=== PATIENT | female | born 1990 | race Caucasian/White ===

== ENCOUNTER 2020-09-30 22:57 | Emergency (ER) | payer OTHER ==
[2020-09-30 23:52] LABS: HEMOGLOBIN 14.4 gm/dl (12.3-15.3); RED BLOOD COUNT 4.77 M/UL (4.00-5.10); WHITE BLOOD COUNT 8.2 K/UL (4.5-11.0)
[2020-10-01 00:10] LABS: BUN/CREATININE RATIO 20 (0-10)
[2020-10-01] MEDS ORDERED: CITRATE OF MAG296 ML PO (01:17)
== END 2020-10-01 01:37 | disposition home or self-care (01) ==
LOC: ER1 22:57
PROVIDERS: Emergency Medicine
DX: R10.9 Unspecified abdominal pain (principal); K56.41 Fecal impaction; M54.9 Dorsalgia, unspecified; F41.9 Anxiety disorder, unspecified; Z79.899 Other long term (current) drug therapy; Z90.49 Acquired absence of other specified parts of digestive tract; Z86.16 Personal history of COVID-19
CPT/HCPCS: 71045; 80053; 81001; 82550; 82553; 83874; 84484; 84703; 85025; 85379; 93005; 99284

== ENCOUNTER 2020-10-01 08:17 | Emergency (ER) | payer OTHER ==
[~2020-10-01 08:17] MED LIST: CITRATE OF MAG296 ML PO
== END 2020-10-01 09:02 | disposition home or self-care (01) ==
LOC: ER1 08:17
DX: K59.00 Constipation, unspecified (principal)
CPT/HCPCS: 99283

== ENCOUNTER 2020-10-02 16:56 | Emergency (ER) | payer OTHER ==
[2020-10-02 21:50] LABS: HEMOGLOBIN 14.5 gm/dl (12.3-15.3); RED BLOOD COUNT 4.77 M/UL (4.00-5.10); WHITE BLOOD COUNT 9.1 K/UL (4.5-11.0)
[2020-10-02 22:08] LABS: BUN/CREATININE RATIO 15 (0-10)
[2020-10-03] MEDS ORDERED: PROTONIX20 MG PO (02:32)
[2020-10-03] MEDS ORDERED: CELEBREX200 MG PO (02:32)
[2020-10-03] MEDS ORDERED: BENTYL 20MG TAB20 MG PO (02:32)
[2020-10-03] MEDS ORDERED: COLACE 100MG C100 MG PO (02:32)
== END 2020-10-03 02:27 | disposition home or self-care (01) ==
LOC: ER1 16:56
PROVIDERS: Emergency Medicine
DX: K59.00 Constipation, unspecified (principal)
CPT/HCPCS: 74018; 80053; 81001; 84703; 85025; 96374; 96375; 99284; J2270; J2405

== ENCOUNTER → 2021-07-22 | Outpatient (CLI) | payer OTHER ==
[~2021-07-22] MED LIST changes: +BENTYL 20MG TAB20 MG PO; +CELEBREX200 MG PO; +COLACE 100MG C100 MG PO; +PROTONIX20 MG PO
== END ==
LOC: LAB 12:52
DX: Z32.00 Encounter for pregnancy test, result unknown (principal); O20.0 Threatened abortion
CPT/HCPCS: 36415; 84702; 86900; 86901

== ENCOUNTER → 2021-09-19 | Outpatient (CLI) | payer OTHER | LOC: OPSV 09:15 | DX: E86.0 Dehydration (principal) | CPT/HCPCS: 96360; J7030 ==

== ENCOUNTER → 2022-02-04 | Outpatient (CLI) | payer OTHER | LOC: GENOP 22:32 | DX: O99.891 Other specified diseases and conditions complicating pregnancy (principal); N93.0 Postcoital and contact bleeding; O99.343 Other mental disorders complicating pregnancy, third trimester; F32.A Depression, unspecified; Z3A.28 28 weeks gestation of pregnancy | CPT/HCPCS: G0463 ==

== ENCOUNTER 2022-04-15 21:58 | Outpatient (CLI) | payer OTHER | END 2022-04-15 23:08 | disposition home or self-care (01) | LOC: GENOP 21:58 | DX: O99.891 Other specified diseases and conditions complicating pregnancy (principal); N89.8 Other specified noninflammatory disorders of vagina; Z3A.38 38 weeks gestation of pregnancy | CPT/HCPCS: 84112; G0463 ==

== ENCOUNTER 2022-04-24 12:43 | Inpatient (IN) | payer OTHER ==
[~2022-04-24] VITALS: Ht 172.7 cm; Wt 91.2 kg
[2022-04-24 13:31] LABS: HEMOGLOBIN 12.2 gm/dl (12.3-15.3); RED BLOOD COUNT 4.07 M/UL (4.00-5.10); WHITE BLOOD COUNT 14.1 K/UL (4.5-11.0)
[2022-04-24] MEDS ORDERED: IBUPROFEN600 MG PO (19:42)
[2022-04-24] MEDS ORDERED: DOCUSATE SODIU100 MG PO (19:42)
[2022-04-25 06:48] LABS: HEMOGLOBIN 10.9 gm/dl (12.3-15.3)
[2022-04-26] MEDS ORDERED: HYDROCODON-ACE1 EAC4 PO (09:53)
== END 2022-04-26 15:27 | disposition home or self-care (01) | DRG 807 ==
LOC: GENOP 12:43 → OB 13:12
PROVIDERS: ADMIT Obstetrics & Gynecology
PROC: 10E0XZZ Delivery of Products of Conception, External Approach (ICD-10-PCS; principal; 2022-04-24)
PROC: 10907ZC Drainage of Amniotic Fluid, Therapeutic from Products of Conception, Via Natural or Artificial Opening (ICD-10-PCS; 2022-04-24)
PROC: 3E033VJ Introduction of Other Hormone into Peripheral Vein, Percutaneous Approach (ICD-10-PCS; 2022-04-24)
PROC: 0HQ9XZZ Repair Perineum Skin, External Approach (ICD-10-PCS; 2022-04-24)
PROC: 0UH97HZ Insertion of Contraceptive Device into Uterus, Via Natural or Artificial Opening (ICD-10-PCS; 2022-04-24)
PROC: 4A1H7CZ Monitoring of Products of Conception, Cardiac Rate, Via Natural or Artificial Opening (ICD-10-PCS; 2022-04-24)
PROC: 10H073Z Insertion of Monitoring Electrode into Products of Conception, Via Natural or Artificial Opening (ICD-10-PCS; 2022-04-24)
PROC: 3E0234Z Introduction of Serum, Toxoid and Vaccine into Muscle, Percutaneous Approach (ICD-10-PCS; 2022-04-24)
DX: O99.344 Other mental disorders complicating childbirth (principal); Z37.0 Single live birth; F32.A Depression, unspecified; F41.9 Anxiety disorder, unspecified; O99.02 Anemia complicating childbirth; O70.0 First degree perineal laceration during delivery; D64.9 Anemia, unspecified; Z3A.39 39 weeks gestation of pregnancy; Z28.310 Unvaccinated for COVID-19; Z83.3 Family history of diabetes mellitus; Z80.8 Family history of malignant neoplasm of other organs or systems; Z23 Encounter for immunization
CPT/HCPCS: 36415; 81001; 82800; 85014; 85018; 85025; 85461; 86850; 86900; 86901; 90715; J2405; J2590; J2790